=== PATIENT | female | born 1975 | race Caucasian/White ===

== ENCOUNTER 2017-07-30 08:43 | Day surgery (SDC) | payer OTHER ==
[2017-07-28 16:14] LABS: BASOPHILS % (AUTO) 0.3 % (0-1); EOSINOPHILS # (AUTO) 0.9 X10'3 (0-0.9); EOSINOPHILS % (AUTO) 11.1 % (0-6); LYMPHOCYTES # (AUTO) 1.7 X10'3 (1.1-4.8); LYMPHOCYTES % (AUTO) 22.2 % (21-51); MEAN CORPUSCULAR HEMOGLOBIN 32.5 PG (27.0-31.0); MEAN CORPUSCULAR HGB CONC 35.9 % (33.0-36.5); MEAN CORPUSCULAR VOLUME 90.7 FL (78-98); MEAN PLATELET VOLUME 7.2 FL (7.4-10.4); MONOCYTES # (AUTO) 0.5 X10'3 (0-0.9); NEUTROPHILS # (AUTO) 4.6 X10'3 (1.8-7.7); NEUTROPHILS % (AUTO) 59.4 % (42-75); PRE OP PLATELET COUNT 254 X10'3 (140-440); RED CELL DISTRIBUTION WIDTH 12.9 % (11.5-14.5)
[2017-07-28 16:22] LABS: ALBUMIN 3.9 G/DL (3.4-5.0); ALBUMIN/GLOBULIN RATIO 1.1 (1.1-1.5); ALKALINE PHOSPHATASE 58 IU/L (46-116); BLOOD UREA NITROGEN 11 MG/DL (7-18); BUN/CREATININE RATIO 14.3 (6.6-38.0); CALCIUM 9.1 MG/DL (8.5-10.1); CHLORIDE 106 MMOL/L (99-107); CREATININE 0.77 MG/DL (0.40-0.90); PRE OP ALT 33 U/L (30-65); PRE OP ANION GAP 7 (8-16); PRE OP AST 17 U/L (10-37); PRE OP BILIRUB, TOTAL 0.5 MG/DL (0.0-1.0); PRE OP GLUCOSE 87 MG/DL (70-104); PRE OP POTASSIUM 3.9 MMOL/L (3.4-5.1); PRE OP SODIUM 142 MMOL/L (135-145); TOTAL CARBON DIOXIDE 29.3 MMOL/L (24-32); TOTAL PROTEIN 7.3 G/DL (6.4-8.2); eGFR 82 ML/MIN
[2017-07-28 16:35] LABS: HCG SERUM QL NEGATIVE
[2017-07-30] VITALS (14 sets, daily range): BP systolic 97–136; BP diastolic 45–81
[~2017-07-30] VITALS: Ht 165.1 cm; Wt 65.3 kg
[~2017-07-30 08:43] MED LIST: NO HOME MEDS; cefazolin/dext.iso 2gm/50ml 50 ML IV ONE; famotidine 20mg tablet PO ONE; ringers solution, lacted 1,000 ML IV SCH
[2017-07-30] MEDS ORDERED: ringers solution, lacted 1,000 ML IV SCH (10:50)
[2017-07-30] MEDS ORDERED: proCHLORperazine 10 MG/2 ml inj IV PRN (10:50)
[2017-07-30] MEDS ORDERED: ondansetron/PF 4mg/2ml inj IV PRN (10:50)
[2017-07-30] MEDS ORDERED: morphine 4 MG/ML inj SYRINge IV PRN ×2 (10:50)
[2017-07-30] MEDS ORDERED: meperidine/PF 50mg/ml syringe IV PRN ×2 (10:50)
[2017-07-30] MEDS ORDERED: BUPIVAcaine/PF 2.5 mg/ml (0.25%) 30ml vial ONE (10:52)
[2017-07-30] MEDS ORDERED: sevoflurane 250ml liquid IH ONE (11:03)
[2017-07-30] MEDS ORDERED: propofol inj 20 ML IV ONE (11:04)
[2017-07-30] MEDS ORDERED: midazolam 2 mg/2 ml injection ONE (11:04)
[2017-07-30] MEDS ORDERED: fentaNYL/PF 50MCG/1 ML 2ML syringe ONE (11:04)
[2017-07-30] MEDS ORDERED: rocuronium 10mg/ml inj IV ONE (11:04)
[2017-07-30] MEDS ORDERED: ondansetron/PF 4mg/2ml inj ONE (11:22)
[2017-07-30] MEDS ORDERED: dexamethasone sod phosphate 4mg/ml inj. ONE (11:22)
[2017-07-30] MEDS ORDERED: ketorolac trometh. 30mg/ml inj. ONE (12:07)
[2017-07-30] MEDS: meperidine/PF 50mg/ml syringe IV PRN ×2 (12:42→12:50)
== END 2017-07-30 14:15 | disposition home or self-care (01) ==
LOC: PAS 08:43
PROVIDERS: ATTEND Obstetrics & Gynecology
DX: Z30.2 Encounter for sterilization (principal); N85.8 Other specified noninflammatory disorders of uterus; N83.202 Unspecified ovarian cyst, left side; N83.201 Unspecified ovarian cyst, right side; D25.9 Leiomyoma of uterus, unspecified; Z98.890 Other specified postprocedural states
CPT/HCPCS: 36415; 58563; 58670; 80053; 84703; 85025; A4355; A6255; A6258; A6402; J0690; J1100; J1885; J2175; J2250; J2270; J2405; J2704; J3010; J3490; J7120; A7000